=== PATIENT | female | born 1945 | race Caucasian/White ===

== ENCOUNTER 2022-10-14 20:29 | Emergency (ER) | payer MEDICARE, MEDICAID ==
[~2022-10-14] VITALS: Ht 152.4 cm; Wt 68.0 kg
[2022-10-14] MEDS ORDERED: GABA-1181 PO (20:55)
[2022-10-14] MEDS ORDERED: ESCI-8 PO (20:55)
[2022-10-14 21:20] LABS: BASOPHILS % (AUTO) 0.5 % (0.0-2.0); EOSINOPHILS % (AUTO) 0.8 % (1.0-6.0); HEMATOCRIT 38.8 % (36-46); HEMOGLOBIN 13.1 g/dL (12.0-16.0); LYMPHOCYTES # (AUTO) 2.4 K/uL (1.0-4.8); LYMPHOCYTES % (AUTO) 23.2 % (22.0-44.0); MEAN CORPUSCULAR HEMOGLOBIN 29.4 pg (26.0-34.0); MEAN CORPUSCULAR HGB CONC 33.7 G/dL (31.0-37.0); MEAN CORPUSCULAR VOLUME 87 fL (80-100); MONOCYTES # (AUTO) 1.1 K/uL (0.1-1.0); MONOCYTES % (AUTO) 10.3 % (2.0-9.0); NEUTROPHILS # (AUTO) 6.7 K/uL (1.8-7.7); NEUTROPHILS % (AUTO) 65.2 % (40.0-70.0); PLATELET COUNT (AUTO) 313 K/uL (150-450); RED BLOOD CELL COUNT(AUTO) 4.45 MIL/uL (4.00-5.20); RED CELL DISTRIBUTION WIDTH 14.5 % (11.5-14.5)
[2022-10-14 21:32] LABS: CALCIUM, TOTAL 9.8 mg/dL (8.8-10.5); CARBON DIOXIDE 26 mmol/L (22-29); CREATININE 0.81 mg/dL (0.60-1.30); GLOMERULAR FILTR. RATE CALC > 60 mL/min (>60); GLUCOSE,RANDOM 130 mg/dL (70-110); UREA NITROGEN, BLOOD 14 mg/dL (7-18)
[2022-10-14 21:44] LABS: ALANINE AMINOTRANSFERASE 35 U/L (12-78); ALBUMIN 4.1 g/dL (3.4-5.0); ALKALINE PHOSPHATASE 52 U/L (46-116); ANION GAP 11 mmol/L (8-16); ASPARTATE AMINOTRANSFERASE 27 U/L (15-37); BILIRUBIN,TOTAL 0.4 mg/dL (0.1-1.0); CHLORIDE 92 mmol/L (98-107); LIPASE 122 U/L (73-393); POTASSIUM 3.5 mmol/L (3.5-5.1); SODIUM SERUM 129 mmol/L (136-145); TOTAL PROTEIN, SERUM 7.5 g/dL (6.4-8.2)
[2022-10-15 00:20] LABS: APPEARANCE,URINE CLEAR (CLEAR); BILIRUBIN,URINE NEGATIVE (NEGATIVE); GLUCOSE, URINE (UA) NEGATIVE (NEGATIVE); LEUKOCYTE ESTERASE ,URINE MODERATE (NEGATIVE); NITRATE,URINE POSITIVE (NEGATIVE); OCCULT BLOOD,URINE NEGATIVE (NEGATIVE); PH,URINE 6.5 (5.0-8.0); PROTEIN,URINE NEGATIVE (NEGATIVE); SPECIFIC GRAVITIY, URINE 1.009 (1.003-1.030); UROBILINOGEN,URINE <=1.0 mg/dL (<=1.0)
[2022-10-15 00:22] LABS: AMPHET/METH SCREEN,URINE NEGATIVE (NEGATIVE); BARBITURATE SCREEN, URINE NEGATIVE (NEGATIVE); BENZODIAZEPINES SCREEN,URINE NEGATIVE (NEGATIVE); CANNABINOID SCREEN,URINE NEGATIVE (NEGATIVE); COCAINE SCREEN,URINE NEGATIVE (NEGATIVE); METHADONE SCREEN, URINE NEGATIVE (NEGATIVE); OPIATE SCREEN,URINE NEGATIVE (NEGATIVE); PHENCYCLIDINE SCREEN,URINE NEGATIVE (NEGATIVE)
[2022-10-15 00:29] LABS: BACTERIA,URINE Many /HPF (None Seen); RBC,URINE 0-2 /HPF (0-2); SQUAMOUS EPITHELIAL CELL,UR Few /LPF (None Seen)
[2022-10-15 00:39] LABS: COVID AG,FIA SOURCE NASAL SWAB
[2022-10-15] MEDS: LORazepam 1 MG TABLET PO ONE ×2 (01:37→02:45)
[2022-10-15] MEDS ORDERED: CEPHALEXIN MONOHYDRATE 500 MG CAPSULE PO ONE (02:45)
[2022-10-15] MEDS ORDERED: CEPH-558 PO (03:09)
[2022-10-15 03:21] VITALS: BP 154/87
[2022-10-15] MEDS ORDERED: METO25 PO (13:15)
== END 2022-10-15 03:44 | disposition short-term general hospital (02) ==
LOC: EMS 20:29
DX: R45.851 Suicidal ideations (principal); N39.0 Urinary tract infection, site not specified; F32.A Depression, unspecified; Z88.0 Allergy status to penicillin; Z20.822 Contact with and (suspected) exposure to COVID-19
CPT/HCPCS: 99285; 71045; 87426; 80053; 83690; 84484; 85025; 36415; 87086; 87186; 93005; 81001; 76705; 80307 ×2; G0480

== ENCOUNTER 2022-10-15 09:56 | Inpatient (IN) | payer OTHER, MEDICAID ==
[~2022-10-15] VITALS: Ht 154.9 cm; Wt 57.6 kg
[~2022-10-15 09:56] MED LIST: CEPH-558 PO; ESCI-8 PO; ESCI5TAB16 PO; GABA-1181 PO; MAG355OR89 PO; METO100T14 PO
[2022-10-15 10:20] LABS: BASOPHILS % (AUTO) 0.4 % (0.0-2.0); EOSINOPHILS % (AUTO) 0.9 % (1.0-6.0); HEMATOCRIT 38.6 % (36-46); LYMPHOCYTES # (AUTO) 2.1 K/uL (1.0-4.8); LYMPHOCYTES % (AUTO) 25.4 % (22.0-44.0); MEAN CORPUSCULAR HEMOGLOBIN 29.1 pg (26.0-34.0); MEAN CORPUSCULAR HGB CONC 33.5 G/dL (31.0-37.0); MEAN CORPUSCULAR VOLUME 87 fL (80-100); MONOCYTES # (AUTO) 0.9 K/uL (0.1-1.0); NEUTROPHILS # (AUTO) 5.2 K/uL (1.8-7.7); NEUTROPHILS % (AUTO) 62.3 % (40.0-70.0); PLATELET COUNT (AUTO) 322 K/uL (150-450); RED BLOOD CELL COUNT(AUTO) 4.45 MIL/uL (4.00-5.20); RED CELL DISTRIBUTION WIDTH 14.4 % (11.5-14.5)
[2022-10-15 10:31] LABS: ANION GAP 9 mmol/L (8-16); CALCIUM, TOTAL 9.4 mg/dL (8.8-10.5); CARBON DIOXIDE 27 mmol/L (22-29); CHLORIDE 94 mmol/L (98-107); CREATININE 0.73 mg/dL (0.60-1.30); GLOMERULAR FILTR. RATE CALC > 60 mL/min (>60); GLUCOSE,RANDOM 142 mg/dL (70-110); POTASSIUM 3.5 mmol/L (3.5-5.1); SODIUM SERUM 130 mmol/L (136-145); UREA NITROGEN, BLOOD 11 mg/dL (7-18)
[2022-10-15 10:36] LABS: ALANINE AMINOTRANSFERASE 35 U/L (12-78); ALBUMIN 3.8 g/dL (3.4-5.0); ALKALINE PHOSPHATASE 47 U/L (46-116); ASPARTATE AMINOTRANSFERASE 32 U/L (15-37); BILIRUBIN,TOTAL 0.5 mg/dL (0.1-1.0); TOTAL PROTEIN, SERUM 7.5 g/dL (6.4-8.2)
[2022-10-15 12:48] LABS: COVID AG,FIA SOURCE NASAL SWAB
[2022-10-15] MEDS ORDERED: METO25 PO (13:15)
[2022-10-15 15:00] VITALS: BP 147/81
[2022-10-15 15:06] LABS: APPEARANCE,URINE CLEAR (CLEAR); BILIRUBIN,URINE NEGATIVE (NEGATIVE); GLUCOSE, URINE (UA) NEGATIVE (NEGATIVE); LEUKOCYTE ESTERASE ,URINE LARGE (NEGATIVE); NITRATE,URINE NEGATIVE (NEGATIVE); OCCULT BLOOD,URINE NEGATIVE (NEGATIVE); PH,URINE 6.5 (5.0-8.0); PROTEIN,URINE TRACE mg/dL (NEGATIVE); SPECIFIC GRAVITIY, URINE 1.012 (1.003-1.030); UROBILINOGEN,URINE <=1.0 mg/dL (<=1.0)
[2022-10-15 15:19] LABS: BACTERIA,URINE None Seen /HPF (None Seen); RBC,URINE None Seen /HPF (0-2); SQUAMOUS EPITHELIAL CELL,UR Few /LPF (None Seen)
[2022-10-15] MEDS: CEPHALEXIN MONOHYDRATE 500 MG CAPSULE PO SCH (17:11)
[2022-10-15] MEDS: ZOLPIDEM TARTRATE 5 MG TABLET PO PRN (20:51)
[2022-10-15 20:59] VITALS: BP 139/88
[2022-10-16 04:45] VITALS: BP 156/88
[2022-10-16] MEDS: LORazepam 1 MG TABLET PO PRN (04:46)
[2022-10-16 08:15] VITALS: BP 111/91
[2022-10-16] MEDS: CEPHALEXIN MONOHYDRATE 500 MG CAPSULE PO SCH ×4 (08:55→16:54)
[2022-10-16] MEDS: QUEtiapine FUMARATE 100 MG TABLET PO PRN (09:27)
[2022-10-16] MEDS ORDERED: ESCITALOPRAM OXALATE 10 MG TABLET PO SCH (11:15)
[2022-10-16] MEDS ORDERED: PETROLATUM,WHITE 28 GM JELLY TP PRN (11:30)
[2022-10-16] MEDS ORDERED: ALBUTEROL SULFATE HFA 90 MCG/PUFF 8 GM INHALER IH PRN (11:30)
[2022-10-16] MEDS ORDERED: CloNIDine HCL 0.1 MG TABLET PO PRN (11:30)
[2022-10-16] MEDS ORDERED: NICOTINE 14 MG/24 HOUR PATCH TD PRN (11:30)
[2022-10-16] MEDS ORDERED: IBUPROFEN 400 MG TABLET PO PRN (11:30)
[2022-10-16] MEDS ORDERED: DOCUSATE SODIUM 100 MG CAPSULE PO PRN (11:30)
[2022-10-16] MEDS ORDERED: GuaiFENesin/D-METHORPHAN [SUGAR-FREE] 200-20MG/10 ML SYRUP UDCUP PO PRN (11:30)
[2022-10-16] MEDS ORDERED: LOPERAMIDE HCL 2 MG CAPSULE PO PRN (11:30)
[2022-10-16] MEDS ORDERED: ONDANSETRON HCL 4 MG TABLET PO PRN (11:30)
[2022-10-16] MEDS: MAGNESIUM HYDROXIDE SUSPENSION 30 ML UDCUP PO PRN (11:31)
[2022-10-16] MEDS: SERTRALINE HCL 50 MG TABLET PO SCH (11:31)
[2022-10-16 16:00] VITALS: BP 142/85
[2022-10-16] MEDS: MAG HYDROX/AL HYDROX/SIMETH ES 30 ML SUSPENSION UDCUP PO PRN (20:02)
[2022-10-16 20:54] VITALS: BP 137/78
[2022-10-16] MEDS: ZOLPIDEM TARTRATE 5 MG TABLET PO PRN (21:35)
[2022-10-17] MEDS: CEPHALEXIN MONOHYDRATE 500 MG CAPSULE PO SCH ×3 (08:32→16:51)
[2022-10-17] MEDS: SERTRALINE HCL 50 MG TABLET PO SCH (08:33)
[2022-10-17 08:45] VITALS: BP 140/90
[2022-10-17 11:03] LABS: BASOPHILS % (AUTO) 0.6 % (0.0-2.0); EOSINOPHILS % (AUTO) 0.9 % (1.0-6.0); HEMATOCRIT 39.1 % (36-46); HEMOGLOBIN 13.3 g/dL (12.0-16.0); LYMPHOCYTES # (AUTO) 1.9 K/uL (1.0-4.8); LYMPHOCYTES % (AUTO) 21.4 % (22.0-44.0); MEAN CORPUSCULAR HEMOGLOBIN 29.2 pg (26.0-34.0); MEAN CORPUSCULAR VOLUME 86 fL (80-100); MONOCYTES # (AUTO) 0.8 K/uL (0.1-1.0); MONOCYTES % (AUTO) 9.4 % (2.0-9.0); NEUTROPHILS % (AUTO) 67.7 % (40.0-70.0); PLATELET COUNT (AUTO) 335 K/uL (150-450); RED BLOOD CELL COUNT(AUTO) 4.55 MIL/uL (4.00-5.20); RED CELL DISTRIBUTION WIDTH 14.6 % (11.5-14.5)
[2022-10-17] MEDS: ACETAMINOPHEN 325 MG TABLET PO PRN (11:22)
[2022-10-17 11:23] LABS: HEMOGLOBIN A1C 6.3 % (3.8-5.6)
[2022-10-17 11:55] LABS: ALANINE AMINOTRANSFERASE 36 U/L (12-78); ALBUMIN 4.3 g/dL (3.4-5.0); ALKALINE PHOSPHATASE 52 U/L (46-116); ANION GAP 12 mmol/L (8-16); ASPARTATE AMINOTRANSFERASE 25 U/L (15-37); BILIRUBIN,TOTAL 0.6 mg/dL (0.1-1.0); CALCIUM, TOTAL 9.9 mg/dL (8.8-10.5); CARBON DIOXIDE 26 mmol/L (22-29); CHLORIDE 94 mmol/L (98-107); CHOL/HDL RATIO 2.4 (3.9-5.7); CHOLESTEROL 178 mg/dL (131-200); CREATININE 0.83 mg/dL (0.60-1.30); GLOMERULAR FILTR. RATE CALC > 60 mL/min (>60); GLUCOSE,RANDOM 151 mg/dL (70-110); HDL CHOLESTEROL 74 mg/dL (40-60); LDL CHOL (CALC.) 93 mg/dL (0-130); POTASSIUM 3.7 mmol/L (3.5-5.1); SODIUM SERUM 132 mmol/L (136-145); THYROID STIMULATING HORMONE 1.83 uIU/mL (0.36-3.74); TOTAL PROTEIN, SERUM 8.2 g/dL (6.4-8.2); TRIGLYCERIDES 56 mg/dL (15-150); UREA NITROGEN, BLOOD 10 mg/dL (7-18)
[2022-10-17] MEDS: QUEtiapine FUMARATE 100 MG TABLET PO PRN (12:25)
[2022-10-17 16:17] VITALS: BP 150/80
[2022-10-17] MEDS: OMEGA-3/DHA/EPA/FISH OIL 1,000 MG CAPSULE PO SCH (20:26)
[2022-10-17] MEDS: MEMANTINE HCL 10 MG TABLET PO SCH (20:26)
[2022-10-17] MEDS: METOPROLOL SUCCINATE 25 MG ER TABLET PO SCH (20:27)
[2022-10-17] MEDS: ZOLPIDEM TARTRATE 5 MG TABLET PO PRN (20:27)
[2022-10-17 21:19] VITALS: BP 130/85
[2022-10-18] MEDS: MetFORMIN HCL 500 MG TABLET PO SCH ×2 (06:35→17:30)
[2022-10-18] MEDS: OMEGA-3/DHA/EPA/FISH OIL 1,000 MG CAPSULE PO SCH ×2 (08:38→21:00)
[2022-10-18] MEDS: CEPHALEXIN MONOHYDRATE 500 MG CAPSULE PO SCH ×2 (08:38→12:13)
[2022-10-18] MEDS: SERTRALINE HCL 50 MG TABLET PO SCH (08:39)
[2022-10-18] MEDS: METOPROLOL SUCCINATE 25 MG ER TABLET PO SCH ×2 (08:40→21:00)
[2022-10-18] MEDS: CHOLECALCIFEROL (VIT D3) 1,000 UNITS [25 MCG] TABLET PO SCH (08:42)
[2022-10-18] MEDS: LORazepam 1 MG TABLET PO PRN (08:43)
[2022-10-18 09:04] VITALS: BP 160/90
[2022-10-18] MEDS: BusPIRone HCL 5 MG TABLET PO SCH ×3 (12:13→21:00)
[2022-10-18] MEDS: QUEtiapine FUMARATE 100 MG TABLET PO PRN (15:02)
[2022-10-18 16:54] VITALS: BP 150/75
[2022-10-18] MEDS: MEMANTINE HCL 10 MG TABLET PO SCH (21:00)
[2022-10-18 21:25] VITALS: BP 160/71
[2022-10-19] MEDS: MetFORMIN HCL 500 MG TABLET PO SCH ×2 (06:33→18:26)
[2022-10-19 08:15] VITALS: BP 140/84
[2022-10-19] MEDS: OMEGA-3/DHA/EPA/FISH OIL 1,000 MG CAPSULE PO SCH ×2 (08:29→20:45)
[2022-10-19] MEDS: SERTRALINE HCL 50 MG TABLET PO SCH (08:29)
[2022-10-19] MEDS: METOPROLOL SUCCINATE 25 MG ER TABLET PO SCH ×2 (08:30→20:46)
[2022-10-19] MEDS: BusPIRone HCL 5 MG TABLET PO SCH ×3 (08:30→20:45)
[2022-10-19] MEDS: CHOLECALCIFEROL (VIT D3) 1,000 UNITS [25 MCG] TABLET PO SCH (08:31)
[2022-10-19 18:32] VITALS: BP 168/68
[2022-10-19] MEDS: QUEtiapine FUMARATE 100 MG TABLET PO PRN (18:50)
[2022-10-19] MEDS: MEMANTINE HCL 10 MG TABLET PO SCH (20:45)
[2022-10-19 21:31] VITALS: BP 115/59
[2022-10-20] MEDS: MetFORMIN HCL 500 MG TABLET PO SCH ×2 (07:06→16:38)
[2022-10-20] MEDS: METOPROLOL SUCCINATE 25 MG ER TABLET PO SCH ×2 (08:28→20:44)
[2022-10-20] MEDS: CHOLECALCIFEROL (VIT D3) 1,000 UNITS [25 MCG] TABLET PO SCH (08:28)
[2022-10-20] MEDS: SERTRALINE HCL 50 MG TABLET PO SCH (08:28)
[2022-10-20] MEDS: OMEGA-3/DHA/EPA/FISH OIL 1,000 MG CAPSULE PO SCH ×2 (08:29→20:43)
[2022-10-20] MEDS: BusPIRone HCL 5 MG TABLET PO SCH ×3 (08:31→20:44)
[2022-10-20 09:04] VITALS: BP 153/82
[2022-10-20 16:11] VITALS: BP 151/83
[2022-10-20] MEDS: MEMANTINE HCL 10 MG TABLET PO SCH (20:44)
[2022-10-20 21:31] VITALS: BP 160/88
[2022-10-21] VITALS (7 sets, daily range): BP systolic 129–166; BP diastolic 61–89
[2022-10-21] MEDS: MetFORMIN HCL 500 MG TABLET PO SCH ×2 (07:06→18:06)
[2022-10-21] MEDS: SERTRALINE HCL 50 MG TABLET PO SCH (08:34)
[2022-10-21] MEDS: BusPIRone HCL 5 MG TABLET PO SCH ×3 (08:34→20:54)
[2022-10-21] MEDS: CHOLECALCIFEROL (VIT D3) 1,000 UNITS [25 MCG] TABLET PO SCH (08:34)
[2022-10-21] MEDS: METOPROLOL SUCCINATE 25 MG ER TABLET PO SCH ×2 (08:34→20:56)
[2022-10-21] MEDS: OMEGA-3/DHA/EPA/FISH OIL 1,000 MG CAPSULE PO SCH ×2 (08:34→20:53)
[2022-10-21] MEDS ORDERED: DiphenhydrAMINE HCL 25 MG CAPSULE PO ONE (11:30)
[2022-10-21] MEDS ORDERED: LORazepam 2 MG TABLET PO ONE (11:30)
[2022-10-21] MEDS ORDERED: DIAZEPAM 5 MG TABLET PO PRN (12:00)
[2022-10-21] MEDS: MEMANTINE HCL 10 MG TABLET PO SCH (20:54)
[2022-10-21] MEDS: ZOLPIDEM TARTRATE 5 MG TABLET PO PRN (22:15)
[2022-10-22] VITALS (9 sets, daily range): BP systolic 119–155; BP diastolic 58–88
[2022-10-22] MEDS: MetFORMIN HCL 500 MG TABLET PO SCH ×2 (06:36→18:06)
[2022-10-22] MEDS: LEVOTHYROXINE SODIUM 75 MCG TABLET PO SCH (06:36)
[2022-10-22] MEDS ORDERED: DIAZEPAM 5 MG TABLET PO PRN (07:00)
[2022-10-22 08:24] LABS: COVID AG,FIA SOURCE NASAL SWAB
[2022-10-22] MEDS: METOPROLOL SUCCINATE 25 MG ER TABLET PO SCH ×2 (11:04→21:20)
[2022-10-22] MEDS: OMEGA-3/DHA/EPA/FISH OIL 1,000 MG CAPSULE PO SCH ×2 (11:04→21:18)
[2022-10-22] MEDS: SERTRALINE HCL 50 MG TABLET PO SCH (11:05)
[2022-10-22] MEDS: BusPIRone HCL 5 MG TABLET PO SCH ×3 (11:06→21:20)
[2022-10-22] MEDS: CHOLECALCIFEROL (VIT D3) 1,000 UNITS [25 MCG] TABLET PO SCH (11:06)
[2022-10-22] MEDS: DIAZEPAM 5 MG TABLET PO SCH ×4 (11:06→21:19)
[2022-10-22] MEDS: MEMANTINE HCL 10 MG TABLET PO SCH (21:20)
[2022-10-23] MEDS: MAGNESIUM HYDROXIDE SUSPENSION 30 ML UDCUP PO PRN (05:42)
[2022-10-23 05:52] VITALS: BP 144/77
[2022-10-23] MEDS: MetFORMIN HCL 500 MG TABLET PO SCH ×2 (06:36→17:59)
[2022-10-23] MEDS: LEVOTHYROXINE SODIUM 75 MCG TABLET PO SCH (06:37)
[2022-10-23 09:00] VITALS: BP 134/93
[2022-10-23 09:01] VITALS: BP 134/93
[2022-10-23] MEDS: BusPIRone HCL 5 MG TABLET PO SCH ×3 (10:08→21:29)
[2022-10-23] MEDS: SERTRALINE HCL 50 MG TABLET PO SCH (10:08)
[2022-10-23] MEDS: METOPROLOL SUCCINATE 25 MG ER TABLET PO SCH ×2 (10:08→21:29)
[2022-10-23] MEDS: OMEGA-3/DHA/EPA/FISH OIL 1,000 MG CAPSULE PO SCH ×2 (10:08→21:29)
[2022-10-23] MEDS: CHOLECALCIFEROL (VIT D3) 1,000 UNITS [25 MCG] TABLET PO SCH (10:08)
[2022-10-23] MEDS: DIAZEPAM 5 MG TABLET PO SCH ×4 (10:09→21:30)
[2022-10-23 16:29] VITALS: BP 150/74
[2022-10-23 20:29] VITALS: BP 120/78
[2022-10-23 20:30] VITALS: BP 120/78
[2022-10-23] MEDS: MEMANTINE HCL 10 MG TABLET PO SCH (21:29)
[2022-10-23] MEDS: ZOLPIDEM TARTRATE 5 MG TABLET PO PRN (22:00)
[2022-10-24] MEDS: LEVOTHYROXINE SODIUM 75 MCG TABLET PO SCH (06:38)
[2022-10-24] MEDS: MetFORMIN HCL 500 MG TABLET PO SCH ×2 (06:38→16:36)
[2022-10-24] MEDS ORDERED: DIAZEPAM 5 MG TABLET PO PRN (07:00)
[2022-10-24 08:30] VITALS: BP 125/74
[2022-10-24 09:23] VITALS: BP 125/74
[2022-10-24] MEDS: OMEGA-3/DHA/EPA/FISH OIL 1,000 MG CAPSULE PO SCH ×2 (09:23→20:59)
[2022-10-24] MEDS: CHOLECALCIFEROL (VIT D3) 1,000 UNITS [25 MCG] TABLET PO SCH (09:23)
[2022-10-24] MEDS: METOPROLOL SUCCINATE 25 MG ER TABLET PO SCH ×2 (09:23→20:58)
[2022-10-24] MEDS: SERTRALINE HCL 50 MG TABLET PO SCH (09:24)
[2022-10-24] MEDS: DIAZEPAM 5 MG TABLET PO SCH ×4 (09:24→20:59)
[2022-10-24] MEDS: BusPIRone HCL 5 MG TABLET PO SCH ×3 (09:24→21:00)
[2022-10-24 16:44] VITALS: BP 129/87
[2022-10-24] MEDS: MEMANTINE HCL 10 MG TABLET PO SCH (20:58)
[2022-10-24 21:00] VITALS: BP 135/65
[2022-10-25 05:57] LABS: APPEARANCE,URINE CLEAR (CLEAR); BILIRUBIN,URINE NEGATIVE (NEGATIVE); GLUCOSE, URINE (UA) NEGATIVE (NEGATIVE); KETONES,URINE NEGATIVE (NEGATIVE); LEUKOCYTE ESTERASE ,URINE SMALL (NEGATIVE); NITRATE,URINE NEGATIVE (NEGATIVE); OCCULT BLOOD,URINE NEGATIVE (NEGATIVE); PH,URINE 6.5 (5.0-8.0); PROTEIN,URINE NEGATIVE (NEGATIVE); SPECIFIC GRAVITIY, URINE 1.011 (1.003-1.030); UROBILINOGEN,URINE <=1.0 mg/dL (<=1.0)
[2022-10-25 06:04] LABS: BACTERIA,URINE None Seen /HPF (None Seen); RBC,URINE None Seen /HPF (0-2); SQUAMOUS EPITHELIAL CELL,UR Rare /LPF (None Seen)
[2022-10-25] MEDS: LEVOTHYROXINE SODIUM 75 MCG TABLET PO SCH (06:37)
[2022-10-25] MEDS: MetFORMIN HCL 500 MG TABLET PO SCH ×2 (06:37→17:50)
[2022-10-25] MEDS ORDERED: DIAZEPAM 5 MG TABLET PO PRN (07:00)
[2022-10-25 08:00] VITALS: BP 140/73
[2022-10-25 08:41] VITALS: BP 160/100
[2022-10-25] MEDS: SERTRALINE HCL 50 MG TABLET PO SCH (09:00)
[2022-10-25] MEDS: BusPIRone HCL 5 MG TABLET PO SCH ×3 (09:00→21:51)
[2022-10-25] MEDS: OMEGA-3/DHA/EPA/FISH OIL 1,000 MG CAPSULE PO SCH ×2 (09:00→21:51)
[2022-10-25] MEDS: CHOLECALCIFEROL (VIT D3) 1,000 UNITS [25 MCG] TABLET PO SCH (09:00)
[2022-10-25] MEDS: METOPROLOL SUCCINATE 25 MG ER TABLET PO SCH ×2 (09:00→21:51)
[2022-10-25 16:14] VITALS: BP 156/91
[2022-10-25 20:35] VITALS: BP 148/93
[2022-10-25] MEDS: MEMANTINE HCL 10 MG TABLET PO SCH (21:51)
[2022-10-25] MEDS: ZOLPIDEM TARTRATE 5 MG TABLET PO PRN (23:59)
[2022-10-26] MEDS: MetFORMIN HCL 500 MG TABLET PO SCH ×2 (06:53→16:46)
[2022-10-26] MEDS: LEVOTHYROXINE SODIUM 75 MCG TABLET PO SCH (06:53)
[2022-10-26] MEDS: OMEGA-3/DHA/EPA/FISH OIL 1,000 MG CAPSULE PO SCH ×2 (08:33→20:41)
[2022-10-26] MEDS: BusPIRone HCL 5 MG TABLET PO SCH ×3 (08:34→20:41)
[2022-10-26] MEDS: SERTRALINE HCL 50 MG TABLET PO SCH (08:35)
[2022-10-26] MEDS: CHOLECALCIFEROL (VIT D3) 1,000 UNITS [25 MCG] TABLET PO SCH (08:35)
[2022-10-26] MEDS: METOPROLOL SUCCINATE 25 MG ER TABLET PO SCH ×2 (08:35→20:41)
[2022-10-26] MEDS: MAG HYDROX/AL HYDROX/SIMETH ES 30 ML SUSPENSION UDCUP PO PRN (08:37)
[2022-10-26 08:43] VITALS: BP 146/84
[2022-10-26 16:12] VITALS: BP 134/78
[2022-10-26] MEDS: MEMANTINE HCL 10 MG TABLET PO SCH (20:41)
[2022-10-26] MEDS: ZOLPIDEM TARTRATE 5 MG TABLET PO PRN (22:56)
[2022-10-26 23:04] VITALS: BP 139/77
[2022-10-27] MEDS: MetFORMIN HCL 500 MG TABLET PO SCH ×2 (06:39→16:40)
[2022-10-27] MEDS: LEVOTHYROXINE SODIUM 75 MCG TABLET PO SCH (06:39)
[2022-10-27 08:41] VITALS: BP 141/74
[2022-10-27] MEDS: BusPIRone HCL 5 MG TABLET PO SCH ×3 (09:01→21:22)
[2022-10-27] MEDS: METOPROLOL SUCCINATE 25 MG ER TABLET PO SCH ×2 (09:01→21:23)
[2022-10-27] MEDS: CHOLECALCIFEROL (VIT D3) 1,000 UNITS [25 MCG] TABLET PO SCH (09:01)
[2022-10-27] MEDS: SERTRALINE HCL 50 MG TABLET PO SCH (09:01)
[2022-10-27] MEDS: OMEGA-3/DHA/EPA/FISH OIL 1,000 MG CAPSULE PO SCH ×2 (09:01→21:22)
[2022-10-27 16:00] VITALS: BP 156/94
[2022-10-27] MEDS: QUEtiapine FUMARATE 100 MG TABLET PO PRN (19:45)
[2022-10-27 21:02] VITALS: BP 136/84
[2022-10-27] MEDS: MEMANTINE HCL 10 MG TABLET PO SCH (21:22)
[2022-10-27] MEDS: ZOLPIDEM TARTRATE 5 MG TABLET PO PRN (21:23)
[2022-10-28] MEDS: LEVOTHYROXINE SODIUM 75 MCG TABLET PO SCH (06:33)
[2022-10-28] MEDS: MetFORMIN HCL 500 MG TABLET PO SCH ×2 (06:33→16:42)
[2022-10-28] MEDS: BusPIRone HCL 5 MG TABLET PO SCH ×3 (08:51→21:20)
[2022-10-28] MEDS: METOPROLOL SUCCINATE 25 MG ER TABLET PO SCH ×2 (08:51→21:20)
[2022-10-28] MEDS: OMEGA-3/DHA/EPA/FISH OIL 1,000 MG CAPSULE PO SCH ×2 (08:51→21:20)
[2022-10-28] MEDS: CHOLECALCIFEROL (VIT D3) 1,000 UNITS [25 MCG] TABLET PO SCH (08:51)
[2022-10-28] MEDS: SERTRALINE HCL 50 MG TABLET PO SCH (08:51)
[2022-10-28 09:21] VITALS: BP 138/75
[2022-10-28] MEDS: MAG HYDROX/AL HYDROX/SIMETH ES 30 ML SUSPENSION UDCUP PO PRN (09:33)
[2022-10-28 16:20] VITALS: BP 137/80
[2022-10-28 16:21] VITALS: BP 126/88
[2022-10-28 19:04] LABS: APPEARANCE,URINE HAZY (CLEAR); BILIRUBIN,URINE NEGATIVE (NEGATIVE); GLUCOSE, URINE (UA) NEGATIVE (NEGATIVE); KETONES,URINE NEGATIVE (NEGATIVE); LEUKOCYTE ESTERASE ,URINE LARGE (NEGATIVE); OCCULT BLOOD,URINE NEGATIVE (NEGATIVE); PH,URINE 6.5 (5.0-8.0); PROTEIN,URINE NEGATIVE (NEGATIVE); SPECIFIC GRAVITIY, URINE 1.006 (1.003-1.030); UROBILINOGEN,URINE <=1.0 mg/dL (<=1.0)
[2022-10-28 19:38] LABS: NITRATE,URINE POSITIVE (NEGATIVE)
[2022-10-28 20:13] VITALS: BP 154/80
[2022-10-28] MEDS: MEMANTINE HCL 10 MG TABLET PO SCH (21:20)
[2022-10-28] MEDS: ZOLPIDEM TARTRATE 5 MG TABLET PO PRN (21:21)
[2022-10-29] MEDS: LEVOTHYROXINE SODIUM 75 MCG TABLET PO SCH (06:31)
[2022-10-29] MEDS: MetFORMIN HCL 500 MG TABLET PO SCH ×2 (06:31→17:45)
[2022-10-29 07:32] LABS: COVID AG,FIA SOURCE NASAL SWAB
[2022-10-29 09:04] VITALS: BP 143/92
[2022-10-29] MEDS: CHOLECALCIFEROL (VIT D3) 1,000 UNITS [25 MCG] TABLET PO SCH (09:49)
[2022-10-29] MEDS: SERTRALINE HCL 50 MG TABLET PO SCH (09:49)
[2022-10-29] MEDS: METOPROLOL SUCCINATE 25 MG ER TABLET PO SCH ×2 (09:49→20:53)
[2022-10-29] MEDS: BusPIRone HCL 5 MG TABLET PO SCH ×3 (09:50→20:52)
[2022-10-29] MEDS: OMEGA-3/DHA/EPA/FISH OIL 1,000 MG CAPSULE PO SCH ×2 (09:51→20:52)
[2022-10-29] MEDS: QUEtiapine FUMARATE 100 MG TABLET PO PRN (09:52)
[2022-10-29 16:06] VITALS: BP 150/88
[2022-10-29] MEDS: MEMANTINE HCL 10 MG TABLET PO SCH (20:52)
[2022-10-29 21:13] VITALS: BP 131/72
[2022-10-30] MEDS: MetFORMIN HCL 500 MG TABLET PO SCH ×2 (07:05→16:51)
[2022-10-30] MEDS: LEVOTHYROXINE SODIUM 75 MCG TABLET PO SCH (07:06)
[2022-10-30 09:02] VITALS: BP 132/83
[2022-10-30] MEDS: OMEGA-3/DHA/EPA/FISH OIL 1,000 MG CAPSULE PO SCH ×2 (09:24→21:49)
[2022-10-30] MEDS: SERTRALINE HCL 50 MG TABLET PO SCH (09:25)
[2022-10-30] MEDS: BusPIRone HCL 5 MG TABLET PO SCH ×3 (09:25→21:49)
[2022-10-30] MEDS: CHOLECALCIFEROL (VIT D3) 1,000 UNITS [25 MCG] TABLET PO SCH (09:26)
[2022-10-30] MEDS: METOPROLOL SUCCINATE 25 MG ER TABLET PO SCH ×2 (09:26→21:48)
[2022-10-30] MEDS: QUEtiapine FUMARATE 100 MG TABLET PO PRN (13:41)
[2022-10-30 16:18] VITALS: BP 140/88
[2022-10-30] MEDS: MEMANTINE HCL 10 MG TABLET PO SCH (21:49)
[2022-10-31] MEDS: ZOLPIDEM TARTRATE 5 MG TABLET PO PRN (00:15)
[2022-10-31] MEDS: MetFORMIN HCL 500 MG TABLET PO SCH ×2 (06:40→16:57)
[2022-10-31] MEDS: LEVOTHYROXINE SODIUM 75 MCG TABLET PO SCH (06:40)
[2022-10-31] MEDS: SERTRALINE HCL 50 MG TABLET PO SCH (08:35)
[2022-10-31] MEDS: OMEGA-3/DHA/EPA/FISH OIL 1,000 MG CAPSULE PO SCH ×2 (08:35→21:10)
[2022-10-31] MEDS: BusPIRone HCL 5 MG TABLET PO SCH ×3 (08:35→21:08)
[2022-10-31] MEDS: CHOLECALCIFEROL (VIT D3) 1,000 UNITS [25 MCG] TABLET PO SCH (08:35)
[2022-10-31] MEDS: METOPROLOL SUCCINATE 25 MG ER TABLET PO SCH ×2 (08:36→21:06)
[2022-10-31] MEDS: QUEtiapine FUMARATE 100 MG TABLET PO PRN ×2 (08:55→16:57)
[2022-10-31 13:27] VITALS: BP 148/78
[2022-10-31 16:21] VITALS: BP 136/66
[2022-10-31 21:03] VITALS: BP 110/93
[2022-10-31] MEDS: MEMANTINE HCL 10 MG TABLET PO SCH (21:10)
[2022-11-01] MEDS: LEVOTHYROXINE SODIUM 75 MCG TABLET PO SCH (06:12)
[2022-11-01] MEDS: MetFORMIN HCL 500 MG TABLET PO SCH ×3 (06:35→17:25)
[2022-11-01] MEDS: OMEGA-3/DHA/EPA/FISH OIL 1,000 MG CAPSULE PO SCH ×2 (08:46→21:30)
[2022-11-01] MEDS: METOPROLOL SUCCINATE 25 MG ER TABLET PO SCH ×2 (08:47→21:30)
[2022-11-01] MEDS: SERTRALINE HCL 50 MG TABLET PO SCH (08:48)
[2022-11-01] MEDS: BusPIRone HCL 5 MG TABLET PO SCH ×4 (08:48→21:30)
[2022-11-01] MEDS: CHOLECALCIFEROL (VIT D3) 1,000 UNITS [25 MCG] TABLET PO SCH (08:50)
[2022-11-01 09:40] VITALS: BP 166/89
[2022-11-01 16:02] VITALS: BP 164/83
[2022-11-01] MEDS: MEMANTINE HCL 10 MG TABLET PO SCH (21:30)
[2022-11-01 22:48] VITALS: BP 104/70
[2022-11-02] MEDS: LEVOTHYROXINE SODIUM 75 MCG TABLET PO SCH (07:00)
[2022-11-02] MEDS: MetFORMIN HCL 500 MG TABLET PO SCH ×2 (07:16→16:13)
[2022-11-02] MEDS: BusPIRone HCL 5 MG TABLET PO SCH ×3 (08:34→20:59)
[2022-11-02] MEDS: OMEGA-3/DHA/EPA/FISH OIL 1,000 MG CAPSULE PO SCH ×2 (08:34→20:59)
[2022-11-02] MEDS: SERTRALINE HCL 50 MG TABLET PO SCH (08:34)
[2022-11-02] MEDS: CHOLECALCIFEROL (VIT D3) 1,000 UNITS [25 MCG] TABLET PO SCH (08:35)
[2022-11-02] MEDS: METOPROLOL SUCCINATE 25 MG ER TABLET PO SCH ×2 (08:36→20:59)
[2022-11-02] MEDS: QUEtiapine FUMARATE 100 MG TABLET PO PRN (09:14)
[2022-11-02] MEDS: MAGNESIUM HYDROXIDE SUSPENSION 30 ML UDCUP PO PRN (15:12)
[2022-11-02] MEDS: ACETAMINOPHEN 325 MG TABLET PO PRN (16:01)
[2022-11-02 16:37] VITALS: BP 137/77
[2022-11-02 20:12] VITALS: BP 137/77
[2022-11-02] MEDS: MEMANTINE HCL 10 MG TABLET PO SCH (20:59)
[2022-11-02] MEDS: ZOLPIDEM TARTRATE 5 MG TABLET PO PRN (21:23)
[2022-11-02] MEDS: MAG HYDROX/AL HYDROX/SIMETH ES 30 ML SUSPENSION UDCUP PO PRN (23:34)
[2022-11-03 01:15] VITALS: BP 166/75
[2022-11-03] MEDS: QUEtiapine FUMARATE 100 MG TABLET PO PRN ×3 (01:16→16:24)
[2022-11-03] MEDS: LEVOTHYROXINE SODIUM 75 MCG TABLET PO SCH (06:57)
[2022-11-03] MEDS: MetFORMIN HCL 500 MG TABLET PO SCH ×2 (06:58→16:22)
[2022-11-03] MEDS: SERTRALINE HCL 50 MG TABLET PO SCH (08:20)
[2022-11-03] MEDS: METOPROLOL SUCCINATE 25 MG ER TABLET PO SCH ×2 (08:20→20:56)
[2022-11-03] MEDS: CHOLECALCIFEROL (VIT D3) 1,000 UNITS [25 MCG] TABLET PO SCH (08:20)
[2022-11-03] MEDS: BusPIRone HCL 5 MG TABLET PO SCH ×3 (08:20→20:56)
[2022-11-03] MEDS: OMEGA-3/DHA/EPA/FISH OIL 1,000 MG CAPSULE PO SCH ×2 (08:20→20:57)
[2022-11-03 08:58] VITALS: BP 133/87
[2022-11-03 17:41] VITALS: BP 164/87
[2022-11-03] MEDS: MEMANTINE HCL 10 MG TABLET PO SCH (20:56)
[2022-11-04] MEDS: MetFORMIN HCL 500 MG TABLET PO SCH ×2 (07:16→16:38)
[2022-11-04] MEDS: LEVOTHYROXINE SODIUM 75 MCG TABLET PO SCH (07:16)
[2022-11-04] MEDS: CHOLECALCIFEROL (VIT D3) 1,000 UNITS [25 MCG] TABLET PO SCH (08:24)
[2022-11-04] MEDS: METOPROLOL SUCCINATE 25 MG ER TABLET PO SCH ×2 (08:24→20:50)
[2022-11-04] MEDS: SERTRALINE HCL 50 MG TABLET PO SCH (08:24)
[2022-11-04] MEDS: OMEGA-3/DHA/EPA/FISH OIL 1,000 MG CAPSULE PO SCH ×2 (08:24→20:50)
[2022-11-04] MEDS: QUEtiapine FUMARATE 100 MG TABLET PO PRN ×2 (08:26→10:19)
[2022-11-04] MEDS: BusPIRone HCL 5 MG TABLET PO SCH ×3 (08:30→20:50)
[2022-11-04 08:36] VITALS: BP 132/75
[2022-11-04 16:40] VITALS: BP 156/83
[2022-11-04 17:05] LABS: APPEARANCE,URINE CLEAR (CLEAR); BILIRUBIN,URINE NEGATIVE (NEGATIVE); GLUCOSE, URINE (UA) NEGATIVE (NEGATIVE); KETONES,URINE NEGATIVE (NEGATIVE); LEUKOCYTE ESTERASE ,URINE LARGE (NEGATIVE); NITRATE,URINE NEGATIVE (NEGATIVE); OCCULT BLOOD,URINE NEGATIVE (NEGATIVE); PH,URINE 6.5 (5.0-8.0); PROTEIN,URINE NEGATIVE (NEGATIVE); SPECIFIC GRAVITIY, URINE 1.004 (1.003-1.030); UROBILINOGEN,URINE <=1.0 mg/dL (<=1.0)
[2022-11-04 17:24] LABS: RBC,URINE None Seen /HPF (0-2)
[2022-11-04 17:26] LABS: BACTERIA,URINE Many /HPF (None Seen)
[2022-11-04] MEDS: CIPROFLOXACIN HCL 500 MG TABLET PO SCH (18:29)
[2022-11-04 20:29] VITALS: BP 155/96
[2022-11-04] MEDS: MEMANTINE HCL 10 MG TABLET PO SCH (20:50)
[2022-11-04] MEDS: ZOLPIDEM TARTRATE 5 MG TABLET PO PRN (21:57)
[2022-11-05 04:42] VITALS: BP 148/80
[2022-11-05] MEDS: ACETAMINOPHEN 325 MG TABLET PO PRN (04:46)
[2022-11-05] MEDS: LEVOTHYROXINE SODIUM 75 MCG TABLET PO SCH (06:37)
[2022-11-05] MEDS: MetFORMIN HCL 500 MG TABLET PO SCH (06:47)
[2022-11-05 07:30] LABS: COVID AG,FIA SOURCE NASAL SWAB
[2022-11-05] MEDS: SERTRALINE HCL 50 MG TABLET PO SCH (07:51)
[2022-11-05] MEDS: BusPIRone HCL 5 MG TABLET PO SCH ×2 (07:51→16:15)
[2022-11-05] MEDS: CHOLECALCIFEROL (VIT D3) 1,000 UNITS [25 MCG] TABLET PO SCH (07:51)
[2022-11-05] MEDS: METOPROLOL SUCCINATE 25 MG ER TABLET PO SCH (07:51)
[2022-11-05] MEDS: CIPROFLOXACIN HCL 500 MG TABLET PO SCH ×2 (07:51→16:15)
[2022-11-05] MEDS: OMEGA-3/DHA/EPA/FISH OIL 1,000 MG CAPSULE PO SCH (07:52)
[2022-11-05 08:40] VITALS: BP 155/93
[2022-11-05] MEDS: QUEtiapine FUMARATE 100 MG TABLET PO PRN (09:18)
[2022-11-05] MEDS ORDERED: BUSP5TAB20 PO (12:01)
[2022-11-05] MEDS ORDERED: METO25XL PO (12:01)
[2022-11-05] MEDS ORDERED: MEMA10TA11 PO (12:01)
[2022-11-05] MEDS ORDERED: CIPR500T10 PO (12:01)
[2022-11-05] MEDS ORDERED: OMEG-135 PO (12:01)
[2022-11-05] MEDS ORDERED: SERT-439 PO (12:01)
[2022-11-05] MEDS ORDERED: METF-1211 PO (12:01)
[2022-11-05] MEDS ORDERED: LEVO75 PO (12:01)
[2022-11-05 16:09] VITALS: BP 113/72
== END 2022-11-05 17:43 | disposition home or self-care (01) | DRG 885 ==
LOC: EMS 09:59 → 3EI 14:55
PROVIDERS: ADMIT Psychiatry & Neurology Psychiatry; ATTEND Psychiatry & Neurology Psychiatry
DX: F33.2 Major depressive disorder, recurrent severe without psychotic features (principal); F13.239 Sedative, hypnotic or anxiolytic dependence with withdrawal, unspecified; N39.0 Urinary tract infection, site not specified; R45.851 Suicidal ideations; E87.1 Hypo-osmolality and hyponatremia; F20.9 Schizophrenia, unspecified; F41.0 Panic disorder [episodic paroxysmal anxiety]; G47.00 Insomnia, unspecified; R73.9 Hyperglycemia, unspecified; I10 Essential (primary) hypertension; Z59.00 Homelessness unspecified; Z87.442 Personal history of urinary calculi; Z79.899 Other long term (current) drug therapy; Z88.0 Allergy status to penicillin; Z91.51 Personal history of suicidal behavior; Z91.81 History of falling
CPT/HCPCS: 80053; 80061; 81001; 83036; 83690; 84443; 85025; 87086; 87186; 92610; 99285

== ENCOUNTER 2022-11-30 05:49 | Inpatient (IN) | payer OTHER, MEDICAID ==
[~2022-11-30] VITALS: Ht 154.9 cm; Wt 55.9 kg
[~2022-11-30 05:49] MED LIST changes: +BUSP5TAB20 PO; -CEPH-558 PO; +CIPR500T10 PO; -ESCI-8 PO; -GABA-1181 PO; +LEVO75 PO; +MEMA10TA11 PO; +METF-1211 PO; +METO25XL PO; +OMEG-135 PO; +SERT-439 PO
[2022-11-30] MEDS ORDERED: SODIUM CHLORIDE 0.9% 1,000 ML IV ONE (06:30)
[2022-11-30] MEDS ORDERED: LORazepam 2 MG/ML VIAL IVP ONE (06:30)
[2022-11-30] MEDS ORDERED: ONDANSETRON HCL 4 MG/2 ML VIAL IVP ONE (06:30)
[2022-11-30 07:00] LABS: BASOPHILS % (AUTO) 0.7 % (0.0-2.0); EOSINOPHILS % (AUTO) 3.1 % (1.0-6.0); HEMATOCRIT 38.1 % (36-46); HEMOGLOBIN 12.8 g/dL (12.0-16.0); LYMPHOCYTES # (AUTO) 2.6 K/uL (1.0-4.8); LYMPHOCYTES % (AUTO) 25.3 % (22.0-44.0); MEAN CORPUSCULAR HEMOGLOBIN 29.9 pg (26.0-34.0); MEAN CORPUSCULAR HGB CONC 33.7 G/dL (31.0-37.0); MEAN CORPUSCULAR VOLUME 89 fL (80-100); MONOCYTES # (AUTO) 0.9 K/uL (0.1-1.0); MONOCYTES % (AUTO) 8.6 % (2.0-9.0); NEUTROPHILS # (AUTO) 6.4 K/uL (1.8-7.7); NEUTROPHILS % (AUTO) 62.3 % (40.0-70.0); PLATELET COUNT (AUTO) 344 K/uL (150-450); RED CELL DISTRIBUTION WIDTH 14.1 % (11.5-14.5)
[2022-11-30 07:04] LABS: ANION GAP 9 mmol/L (8-16); CALCIUM, TOTAL 9.3 mg/dL (8.8-10.5); CARBON DIOXIDE 27 mmol/L (22-29); CHLORIDE 97 mmol/L (98-107); CREATININE 0.86 mg/dL (0.60-1.30); GLOMERULAR FILTR. RATE CALC > 60 mL/min (>60); GLUCOSE,RANDOM 188 mg/dL (70-110); POTASSIUM 3.6 mmol/L (3.5-5.1); SODIUM SERUM 133 mmol/L (136-145); UREA NITROGEN, BLOOD 15 mg/dL (7-18)
[2022-11-30 07:11] LABS: ALANINE AMINOTRANSFERASE 37 U/L (12-78); ALBUMIN 3.4 g/dL (3.4-5.0); ALKALINE PHOSPHATASE 53 U/L (46-116); ASPARTATE AMINOTRANSFERASE 23 U/L (15-37); BILIRUBIN,TOTAL 0.5 mg/dL (0.1-1.0); TOTAL PROTEIN, SERUM 7.5 g/dL (6.4-8.2)
[2022-11-30] MEDS ORDERED: RAME8TAB8 PO (09:53)
[2022-11-30] MEDS ORDERED: TRAZ-252 PO (09:53)
[2022-11-30] MEDS ORDERED: LORazepam 2 MG TABLET PO PRN (10:00)
[2022-11-30] MEDS ORDERED: HALOPERIDOL 5 MG TABLET PO PRN (10:00)
[2022-11-30 10:09] LABS: COVID AG,FIA SOURCE NASOPHARYNGEAL
[2022-11-30] MEDS ORDERED: ESCI20TA37 PO (11:10)
[2022-11-30] MEDS ORDERED: METO25 PO (11:10)
[2022-11-30] MEDS ORDERED: MULT1TAB67 PO (11:10)
[2022-11-30] MEDS ORDERED: AZEL137S8 NASAL (11:10)
[2022-11-30] MEDS ORDERED: CHOL200059 PO (11:10)
[2022-11-30] MEDS ORDERED: NITR100C9 PO (11:10)
[2022-11-30] MEDS ORDERED: CRAN500C5 PO (11:10)
[2022-11-30] MEDS ORDERED: OMEG100015 PO (11:10)
[2022-11-30] MEDS ORDERED: CETI10TA58 PO (11:10)
[2022-11-30] MEDS ORDERED: ESTR42.510 VG (11:10)
[2022-11-30 12:41] VITALS: BP 136/72
[2022-11-30] MEDS: OMEGA-3/DHA/EPA/FISH OIL 1,000 MG CAPSULE PO SCH (17:29)
[2022-11-30] MEDS: MetFORMIN HCL 500 MG TABLET PO SCH (17:32)
[2022-11-30 21:14] VITALS: BP 133/83
[2022-11-30] MEDS: MEMANTINE HCL 10 MG TABLET PO SCH (21:45)
[2022-11-30] MEDS: METOPROLOL TARTRATE 25 MG TABLET PO SCH (21:46)
[2022-12-01] VITALS (8 sets, daily range): BP systolic 129–160; BP diastolic 68–84
[2022-12-01] MEDS: ZOLPIDEM TARTRATE 10 MG TABLET PO PRN ×2 (01:29→21:41)
[2022-12-01] MEDS ORDERED: PETROLATUM,WHITE 28 GM JELLY TP PRN (06:45)
[2022-12-01] MEDS ORDERED: ONDANSETRON HCL 4 MG TABLET PO PRN (06:45)
[2022-12-01] MEDS ORDERED: MAGNESIUM HYDROXIDE SUSPENSION 30 ML UDCUP PO PRN (06:45)
[2022-12-01] MEDS ORDERED: LOPERAMIDE HCL 2 MG CAPSULE PO PRN (06:45)
[2022-12-01] MEDS ORDERED: DOCUSATE SODIUM 100 MG CAPSULE PO PRN (06:45)
[2022-12-01] MEDS ORDERED: NICOTINE 14 MG/24 HOUR PATCH TD PRN (06:45)
[2022-12-01] MEDS ORDERED: ACETAMINOPHEN 325 MG TABLET PO PRN (06:45)
[2022-12-01] MEDS: MetFORMIN HCL 500 MG TABLET PO SCH ×2 (06:54→16:36)
[2022-12-01] MEDS: LEVOTHYROXINE SODIUM 75 MCG TABLET PO SCH (06:54)
[2022-12-01] MEDS: CHOLECALCIFEROL (VIT D3) 2,000 UNITS [50 MCG] TABLET PO SCH (09:04)
[2022-12-01] MEDS: OMEGA-3/DHA/EPA/FISH OIL 1,000 MG CAPSULE PO SCH ×2 (09:05→16:32)
[2022-12-01] MEDS: METOPROLOL TARTRATE 25 MG TABLET PO SCH ×2 (09:05→21:24)
[2022-12-01] MEDS: SERTRALINE HCL 100 MG TABLET PO SCH (11:45)
[2022-12-01] MEDS: BusPIRone HCL 5 MG TABLET PO SCH ×3 (11:46→21:24)
[2022-12-01] MEDS ORDERED: DIAZEPAM 5 MG TABLET PO PRN (14:35)
[2022-12-01] MEDS: DIAZEPAM 5 MG TABLET PO SCH ×2 (16:34→21:24)
[2022-12-01] MEDS: MEMANTINE HCL 10 MG TABLET PO SCH (21:24)
[2022-12-02] MEDS: MetFORMIN HCL 500 MG TABLET PO SCH ×2 (06:38→16:42)
[2022-12-02] MEDS: LEVOTHYROXINE SODIUM 75 MCG TABLET PO SCH (06:38)
[2022-12-02] MEDS ORDERED: DIAZEPAM 5 MG TABLET PO PRN ×2 (07:00→09:00)
[2022-12-02] MEDS ORDERED: DIAZEPAM 10 MG TABLET PO PRN (07:00)
[2022-12-02] MEDS: MAG HYDROX/AL HYDROX/SIMETH ES 30 ML SUSPENSION UDCUP PO PRN (07:09)
[2022-12-02 08:25] VITALS: BP 150/72
[2022-12-02 08:30] VITALS: BP 150/72
[2022-12-02] MEDS: DIAZEPAM 10 MG TABLET PO SCH ×4 (09:00→21:25)
[2022-12-02] MEDS: CHOLECALCIFEROL (VIT D3) 2,000 UNITS [50 MCG] TABLET PO SCH (09:00)
[2022-12-02] MEDS ORDERED: DIAZEPAM 5 MG TABLET PO SCH (09:00)
[2022-12-02] MEDS: OMEGA-3/DHA/EPA/FISH OIL 1,000 MG CAPSULE PO SCH ×2 (09:01→16:42)
[2022-12-02] MEDS: BusPIRone HCL 5 MG TABLET PO SCH ×3 (09:02→21:25)
[2022-12-02] MEDS: METOPROLOL TARTRATE 25 MG TABLET PO SCH ×2 (09:03→21:25)
[2022-12-02] MEDS: SERTRALINE HCL 100 MG TABLET PO SCH (09:04)
[2022-12-02 14:30] VITALS: BP 136/73
[2022-12-02 16:10] VITALS: BP 132/76
[2022-12-02 18:56] LABS: APPEARANCE,URINE HAZY (CLEAR); BILIRUBIN,URINE NEGATIVE (NEGATIVE); GLUCOSE, URINE (UA) NEGATIVE (NEGATIVE); KETONES,URINE NEGATIVE (NEGATIVE); LEUKOCYTE ESTERASE ,URINE LARGE (NEGATIVE); NITRATE,URINE POSITIVE (NEGATIVE); OCCULT BLOOD,URINE NEGATIVE (NEGATIVE); PROTEIN,URINE NEGATIVE (NEGATIVE); SPECIFIC GRAVITIY, URINE 1.006 (1.003-1.030); UROBILINOGEN,URINE <=1.0 mg/dL (<=1.0)
[2022-12-02 19:02] LABS: AMPHET/METH SCREEN,URINE NEGATIVE (NEGATIVE); BARBITURATE SCREEN, URINE NEGATIVE (NEGATIVE); BENZODIAZEPINES SCREEN,URINE POSITIVE (NEGATIVE); CANNABINOID SCREEN,URINE NEGATIVE (NEGATIVE); COCAINE SCREEN,URINE NEGATIVE (NEGATIVE); METHADONE SCREEN, URINE NEGATIVE (NEGATIVE); OPIATE SCREEN,URINE NEGATIVE (NEGATIVE); PHENCYCLIDINE SCREEN,URINE NEGATIVE (NEGATIVE)
[2022-12-02 19:26] LABS: BACTERIA,URINE Moderate /HPF (None Seen); RBC,URINE None Seen /HPF (0-2); SQUAMOUS EPITHELIAL CELL,UR None Seen /LPF (None Seen)
[2022-12-02 20:30] VITALS: BP 135/74
[2022-12-02 21:21] VITALS: BP 135/74
[2022-12-02] MEDS: MEMANTINE HCL 10 MG TABLET PO SCH (21:25)
[2022-12-02] MEDS: ZOLPIDEM TARTRATE 10 MG TABLET PO PRN (22:27)
[2022-12-03] MEDS: MetFORMIN HCL 500 MG TABLET PO SCH ×2 (06:46→17:30)
[2022-12-03] MEDS: LEVOTHYROXINE SODIUM 75 MCG TABLET PO SCH (06:46)
[2022-12-03 08:42] VITALS: BP 129/76
[2022-12-03] MEDS ORDERED: DIAZEPAM 5 MG TABLET PO PRN (09:00)
[2022-12-03] MEDS: OMEGA-3/DHA/EPA/FISH OIL 1,000 MG CAPSULE PO SCH ×2 (10:15→16:54)
[2022-12-03] MEDS: SERTRALINE HCL 100 MG TABLET PO SCH (10:15)
[2022-12-03] MEDS: BusPIRone HCL 5 MG TABLET PO SCH ×3 (10:15→20:08)
[2022-12-03] MEDS: METOPROLOL TARTRATE 25 MG TABLET PO SCH ×2 (10:15→20:09)
[2022-12-03] MEDS: DIAZEPAM 10 MG TABLET PO SCH ×4 (10:15→20:08)
[2022-12-03] MEDS: CHOLECALCIFEROL (VIT D3) 2,000 UNITS [50 MCG] TABLET PO SCH (10:15)
[2022-12-03] MEDS: MAG HYDROX/AL HYDROX/SIMETH ES 30 ML SUSPENSION UDCUP PO PRN (12:52)
[2022-12-03 16:45] VITALS: BP 157/96
[2022-12-03] MEDS: MEMANTINE HCL 10 MG TABLET PO SCH (20:08)
[2022-12-03] MEDS: ZOLPIDEM TARTRATE 10 MG TABLET PO PRN (21:14)
[2022-12-03 21:15] VITALS: BP 112/60
[2022-12-03 22:03] VITALS: BP 112/60
[2022-12-04] MEDS: GuaiFENesin/D-METHORPHAN [SUGAR-FREE] 200-20MG/10 ML SYRUP UDCUP PO PRN (06:10)
[2022-12-04] MEDS: LEVOTHYROXINE SODIUM 75 MCG TABLET PO SCH (06:35)
[2022-12-04] MEDS: MetFORMIN HCL 500 MG TABLET PO SCH ×2 (06:35→17:24)
[2022-12-04] MEDS ORDERED: DIAZEPAM 5 MG TABLET PO PRN (07:00)
[2022-12-04 08:00] VITALS: BP 141/62
[2022-12-04] MEDS: SERTRALINE HCL 100 MG TABLET PO SCH (09:32)
[2022-12-04] MEDS: METOPROLOL TARTRATE 25 MG TABLET PO SCH ×2 (09:32→20:05)
[2022-12-04] MEDS: OMEGA-3/DHA/EPA/FISH OIL 1,000 MG CAPSULE PO SCH ×2 (09:32→17:26)
[2022-12-04] MEDS: BusPIRone HCL 5 MG TABLET PO SCH ×3 (09:32→20:05)
[2022-12-04] MEDS: CHOLECALCIFEROL (VIT D3) 2,000 UNITS [50 MCG] TABLET PO SCH (09:33)
[2022-12-04] MEDS: DIAZEPAM 5 MG TABLET PO SCH ×4 (09:34→20:05)
[2022-12-04 09:35] VITALS: BP 134/68
[2022-12-04] MEDS: IBUPROFEN 400 MG TABLET PO PRN (09:35)
[2022-12-04 16:12] VITALS: BP 124/72
[2022-12-04] MEDS: CIPROFLOXACIN HCL 500 MG TABLET PO SCH (17:25)
[2022-12-04] MEDS: MEMANTINE HCL 10 MG TABLET PO SCH (20:05)
[2022-12-04 20:51] VITALS: BP 138/81
[2022-12-04 21:03] VITALS: BP 138/81
[2022-12-04] MEDS: ZOLPIDEM TARTRATE 10 MG TABLET PO PRN (21:42)
[2022-12-05] MEDS: GuaiFENesin/D-METHORPHAN [SUGAR-FREE] 200-20MG/10 ML SYRUP UDCUP PO PRN (06:30)
[2022-12-05] MEDS: LEVOTHYROXINE SODIUM 75 MCG TABLET PO SCH (06:50)
[2022-12-05] MEDS: MetFORMIN HCL 500 MG TABLET PO SCH ×2 (06:50→17:19)
[2022-12-05] MEDS ORDERED: DIAZEPAM 5 MG TABLET PO PRN (07:00)
[2022-12-05 08:30] VITALS: BP 100/60
[2022-12-05 08:46] VITALS: BP 100/54
[2022-12-05] MEDS: SERTRALINE HCL 100 MG TABLET PO SCH (09:00)
[2022-12-05] MEDS: CHOLECALCIFEROL (VIT D3) 2,000 UNITS [50 MCG] TABLET PO SCH (09:00)
[2022-12-05] MEDS: OMEGA-3/DHA/EPA/FISH OIL 1,000 MG CAPSULE PO SCH ×2 (09:00→16:04)
[2022-12-05] MEDS: BusPIRone HCL 5 MG TABLET PO SCH ×3 (09:00→21:12)
[2022-12-05] MEDS: CIPROFLOXACIN HCL 500 MG TABLET PO SCH ×2 (09:00→16:04)
[2022-12-05] MEDS: METOPROLOL TARTRATE 25 MG TABLET PO SCH ×2 (09:00→21:11)
[2022-12-05 16:25] VITALS: BP 130/75
[2022-12-05 20:00] VITALS: BP 124/72
[2022-12-05] MEDS: MEMANTINE HCL 10 MG TABLET PO SCH (21:10)
[2022-12-06] MEDS: MAG HYDROX/AL HYDROX/SIMETH ES 30 ML SUSPENSION UDCUP PO PRN (05:09)
[2022-12-06] MEDS: GuaiFENesin/D-METHORPHAN [SUGAR-FREE] 200-20MG/10 ML SYRUP UDCUP PO PRN (06:19)
[2022-12-06] MEDS: ALBUTEROL SULFATE HFA 90 MCG/PUFF 8 GM INHALER IH PRN (06:22)
[2022-12-06] MEDS: MetFORMIN HCL 500 MG TABLET PO SCH ×2 (06:23→17:28)
[2022-12-06] MEDS: LEVOTHYROXINE SODIUM 75 MCG TABLET PO SCH (06:23)
[2022-12-06 07:56] LABS: COVID AG,FIA SOURCE NASAL SWAB
[2022-12-06 08:44] VITALS: BP 150/78
[2022-12-06] MEDS: BusPIRone HCL 5 MG TABLET PO SCH ×3 (09:08→20:34)
[2022-12-06] MEDS: CHOLECALCIFEROL (VIT D3) 2,000 UNITS [50 MCG] TABLET PO SCH (09:08)
[2022-12-06] MEDS: SERTRALINE HCL 100 MG TABLET PO SCH (09:08)
[2022-12-06] MEDS: CIPROFLOXACIN HCL 500 MG TABLET PO SCH ×2 (09:09→17:28)
[2022-12-06] MEDS: METOPROLOL TARTRATE 25 MG TABLET PO SCH ×2 (09:10→20:34)
[2022-12-06] MEDS: OMEGA-3/DHA/EPA/FISH OIL 1,000 MG CAPSULE PO SCH ×2 (09:11→17:29)
[2022-12-06 09:20] VITALS: BP 150/78
[2022-12-06] MEDS: IBUPROFEN 400 MG TABLET PO PRN (09:22)
[2022-12-06 16:03] VITALS: BP 145/77
[2022-12-06 20:21] VITALS: BP 140/80
[2022-12-06] MEDS: MEMANTINE HCL 10 MG TABLET PO SCH (20:34)
[2022-12-06] MEDS: ZOLPIDEM TARTRATE 10 MG TABLET PO PRN (21:49)
[2022-12-07] MEDS: LEVOTHYROXINE SODIUM 75 MCG TABLET PO SCH (06:15)
[2022-12-07] MEDS: MetFORMIN HCL 500 MG TABLET PO SCH ×2 (06:38→17:08)
[2022-12-07] MEDS: BusPIRone HCL 5 MG TABLET PO SCH ×3 (09:01→20:34)
[2022-12-07] MEDS: SERTRALINE HCL 100 MG TABLET PO SCH (09:01)
[2022-12-07] MEDS: OMEGA-3/DHA/EPA/FISH OIL 1,000 MG CAPSULE PO SCH ×2 (09:02→17:08)
[2022-12-07] MEDS: METOPROLOL TARTRATE 25 MG TABLET PO SCH ×2 (09:02→20:34)
[2022-12-07] MEDS: CHOLECALCIFEROL (VIT D3) 2,000 UNITS [50 MCG] TABLET PO SCH (09:03)
[2022-12-07] MEDS: CIPROFLOXACIN HCL 500 MG TABLET PO SCH (09:03)
[2022-12-07 09:25] VITALS: BP 131/64
[2022-12-07 16:27] VITALS: BP 133/77
[2022-12-07] MEDS: ALBUTEROL SULFATE HFA 90 MCG/PUFF 8 GM INHALER IH PRN (17:01)
[2022-12-07] MEDS: NITROFURANTOIN MONOHYD/M-CRYST 100 MG CAPSULE [MACROBID] PO SCH (17:08)
[2022-12-07] MEDS: MEMANTINE HCL 10 MG TABLET PO SCH (20:34)
[2022-12-07] MEDS: ZOLPIDEM TARTRATE 10 MG TABLET PO PRN (21:28)
[2022-12-07 23:04] VITALS: BP 155/74
[2022-12-08] MEDS: GuaiFENesin/D-METHORPHAN [SUGAR-FREE] 200-20MG/10 ML SYRUP UDCUP PO PRN (04:21)
[2022-12-08] MEDS: LEVOTHYROXINE SODIUM 75 MCG TABLET PO SCH (06:05)
[2022-12-08] MEDS: MetFORMIN HCL 500 MG TABLET PO SCH ×2 (06:44→17:49)
[2022-12-08 08:00] VITALS: BP 134/75
[2022-12-08] MEDS: NITROFURANTOIN MONOHYD/M-CRYST 100 MG CAPSULE [MACROBID] PO SCH ×2 (08:33→16:15)
[2022-12-08] MEDS: OMEGA-3/DHA/EPA/FISH OIL 1,000 MG CAPSULE PO SCH ×2 (08:33→16:15)
[2022-12-08] MEDS: SERTRALINE HCL 100 MG TABLET PO SCH (08:33)
[2022-12-08] MEDS: METOPROLOL TARTRATE 25 MG TABLET PO SCH ×2 (08:33→20:51)
[2022-12-08] MEDS: BusPIRone HCL 5 MG TABLET PO SCH ×3 (08:33→20:51)
[2022-12-08] MEDS: CHOLECALCIFEROL (VIT D3) 2,000 UNITS [50 MCG] TABLET PO SCH (08:33)
[2022-12-08] MEDS: ALBUTEROL SULFATE HFA 90 MCG/PUFF 8 GM INHALER IH PRN (15:32)
[2022-12-08 17:09] VITALS: BP 131/73
[2022-12-08 20:47] VITALS: BP 129/77
[2022-12-08] MEDS: MEMANTINE HCL 10 MG TABLET PO SCH (20:51)
[2022-12-09] MEDS: LEVOTHYROXINE SODIUM 75 MCG TABLET PO SCH (06:59)
[2022-12-09] MEDS: MetFORMIN HCL 500 MG TABLET PO SCH ×2 (06:59→16:53)
[2022-12-09 09:27] VITALS: BP 121/60
[2022-12-09] MEDS: OMEGA-3/DHA/EPA/FISH OIL 1,000 MG CAPSULE PO SCH ×2 (10:21→16:52)
[2022-12-09] MEDS: METOPROLOL TARTRATE 25 MG TABLET PO SCH ×2 (10:22→20:57)
[2022-12-09] MEDS: SERTRALINE HCL 100 MG TABLET PO SCH (10:22)
[2022-12-09] MEDS: BusPIRone HCL 5 MG TABLET PO SCH ×3 (10:23→20:57)
[2022-12-09] MEDS: CHOLECALCIFEROL (VIT D3) 2,000 UNITS [50 MCG] TABLET PO SCH (10:25)
[2022-12-09] MEDS: NITROFURANTOIN MONOHYD/M-CRYST 100 MG CAPSULE [MACROBID] PO SCH ×2 (10:25→16:53)
[2022-12-09] MEDS: ALBUTEROL SULFATE HFA 90 MCG/PUFF 8 GM INHALER IH PRN ×2 (12:41→20:59)
[2022-12-09 20:09] VITALS: BP 140/82
[2022-12-09] MEDS: MEMANTINE HCL 10 MG TABLET PO SCH (20:58)
[2022-12-09] MEDS: ZOLPIDEM TARTRATE 10 MG TABLET PO PRN (20:58)
[2022-12-10] MEDS: LEVOTHYROXINE SODIUM 75 MCG TABLET PO SCH (06:41)
[2022-12-10] MEDS: MetFORMIN HCL 500 MG TABLET PO SCH ×2 (06:42→16:55)
[2022-12-10 08:47] VITALS: BP 130/61
[2022-12-10] MEDS: NITROFURANTOIN MONOHYD/M-CRYST 100 MG CAPSULE [MACROBID] PO SCH ×2 (10:06→16:54)
[2022-12-10] MEDS: ALBUTEROL SULFATE HFA 90 MCG/PUFF 8 GM INHALER IH PRN (10:06)
[2022-12-10] MEDS: CHOLECALCIFEROL (VIT D3) 2,000 UNITS [50 MCG] TABLET PO SCH (10:06)
[2022-12-10] MEDS: OMEGA-3/DHA/EPA/FISH OIL 1,000 MG CAPSULE PO SCH ×2 (10:07→16:55)
[2022-12-10] MEDS: BusPIRone HCL 5 MG TABLET PO SCH ×3 (10:07→20:57)
[2022-12-10] MEDS: METOPROLOL TARTRATE 25 MG TABLET PO SCH ×2 (10:10→20:57)
[2022-12-10] MEDS: SERTRALINE HCL 100 MG TABLET PO SCH (10:10)
[2022-12-10 10:12] VITALS: BP 130/61
[2022-12-10] MEDS: IBUPROFEN 400 MG TABLET PO PRN (10:12)
[2022-12-10 11:12] VITALS: BP 131/68
[2022-12-10] MEDS: MULTIVITAMINS WITH MINERALS, THERAPEUTIC TABLET PO SCH (15:48)
[2022-12-10 16:08] VITALS: BP 149/51
[2022-12-10 20:34] VITALS: BP 137/73
[2022-12-10] MEDS: ZOLPIDEM TARTRATE 10 MG TABLET PO PRN (20:57)
[2022-12-10] MEDS: MEMANTINE HCL 10 MG TABLET PO SCH (21:38)
[2022-12-11] MEDS: LEVOTHYROXINE SODIUM 75 MCG TABLET PO SCH (06:11)
[2022-12-11] MEDS: MetFORMIN HCL 500 MG TABLET PO SCH ×2 (06:37→16:34)
[2022-12-11] MEDS: METOPROLOL TARTRATE 25 MG TABLET PO SCH ×2 (08:44→21:33)
[2022-12-11] MEDS: OMEGA-3/DHA/EPA/FISH OIL 1,000 MG CAPSULE PO SCH ×2 (08:44→16:34)
[2022-12-11] MEDS: CHOLECALCIFEROL (VIT D3) 2,000 UNITS [50 MCG] TABLET PO SCH (08:44)
[2022-12-11] MEDS: BusPIRone HCL 5 MG TABLET PO SCH ×3 (08:44→21:32)
[2022-12-11] MEDS: SERTRALINE HCL 100 MG TABLET PO SCH (08:44)
[2022-12-11] MEDS: NITROFURANTOIN MONOHYD/M-CRYST 100 MG CAPSULE [MACROBID] PO SCH ×2 (08:44→16:34)
[2022-12-11] MEDS: MULTIVITAMINS WITH MINERALS, THERAPEUTIC TABLET PO SCH (08:44)
[2022-12-11 08:45] VITALS: BP 143/63
[2022-12-11] MEDS: ALBUTEROL SULFATE HFA 90 MCG/PUFF 8 GM INHALER IH PRN (14:25)
[2022-12-11 16:00] VITALS: BP 145/69
[2022-12-11 20:43] VITALS: BP 133/78
[2022-12-11] MEDS: MEMANTINE HCL 10 MG TABLET PO SCH (21:32)
[2022-12-12] MEDS: LEVOTHYROXINE SODIUM 75 MCG TABLET PO SCH (06:40)
[2022-12-12] MEDS: MetFORMIN HCL 500 MG TABLET PO SCH ×2 (06:40→16:42)
[2022-12-12 08:37] VITALS: BP 130/70
[2022-12-12] MEDS: NITROFURANTOIN MONOHYD/M-CRYST 100 MG CAPSULE [MACROBID] PO SCH ×2 (09:12→16:40)
[2022-12-12] MEDS: CHOLECALCIFEROL (VIT D3) 2,000 UNITS [50 MCG] TABLET PO SCH (09:13)
[2022-12-12] MEDS: MULTIVITAMINS WITH MINERALS, THERAPEUTIC TABLET PO SCH (09:15)
[2022-12-12] MEDS: SERTRALINE HCL 100 MG TABLET PO SCH (09:16)
[2022-12-12] MEDS: OMEGA-3/DHA/EPA/FISH OIL 1,000 MG CAPSULE PO SCH ×2 (09:16→16:42)
[2022-12-12] MEDS: BusPIRone HCL 5 MG TABLET PO SCH ×3 (09:16→21:06)
[2022-12-12] MEDS: METOPROLOL TARTRATE 25 MG TABLET PO SCH ×2 (09:16→21:07)
[2022-12-12 16:00] VITALS: BP 120/69
[2022-12-12] MEDS: ALBUTEROL SULFATE HFA 90 MCG/PUFF 8 GM INHALER IH PRN (16:49)
[2022-12-12 20:51] VITALS: BP 140/87
[2022-12-12] MEDS: MEMANTINE HCL 10 MG TABLET PO SCH (21:06)
[2022-12-13] MEDS: MetFORMIN HCL 500 MG TABLET PO SCH ×2 (06:42→17:56)
[2022-12-13] MEDS: LEVOTHYROXINE SODIUM 75 MCG TABLET PO SCH (06:42)
[2022-12-13 07:04] LABS: COVID AG,FIA SOURCE NASAL SWAB
[2022-12-13] MEDS: OMEGA-3/DHA/EPA/FISH OIL 1,000 MG CAPSULE PO SCH ×2 (08:52→17:57)
[2022-12-13] MEDS: METOPROLOL TARTRATE 25 MG TABLET PO SCH ×2 (08:52→21:04)
[2022-12-13] MEDS: SERTRALINE HCL 100 MG TABLET PO SCH (08:53)
[2022-12-13] MEDS: NITROFURANTOIN MONOHYD/M-CRYST 100 MG CAPSULE [MACROBID] PO SCH ×2 (08:53→17:56)
[2022-12-13] MEDS: MULTIVITAMINS WITH MINERALS, THERAPEUTIC TABLET PO SCH (08:53)
[2022-12-13] MEDS: BusPIRone HCL 5 MG TABLET PO SCH ×3 (08:53→21:03)
[2022-12-13] MEDS: CHOLECALCIFEROL (VIT D3) 2,000 UNITS [50 MCG] TABLET PO SCH (08:53)
[2022-12-13] MEDS: ALBUTEROL SULFATE HFA 90 MCG/PUFF 8 GM INHALER IH PRN (08:55)
[2022-12-13 09:35] VITALS: BP 143/72
[2022-12-13 16:17] VITALS: BP 115/76
[2022-12-13 20:24] VITALS: BP 149/95
[2022-12-13] MEDS: MEMANTINE HCL 10 MG TABLET PO SCH (21:03)
[2022-12-14] MEDS: GuaiFENesin/D-METHORPHAN [SUGAR-FREE] 200-20MG/10 ML SYRUP UDCUP PO PRN (07:03)
[2022-12-14] MEDS: LEVOTHYROXINE SODIUM 75 MCG TABLET PO SCH (07:03)
[2022-12-14] MEDS: MetFORMIN HCL 500 MG TABLET PO SCH ×2 (07:03→16:24)
[2022-12-14 08:00] VITALS: BP 135/59
[2022-12-14] MEDS: BusPIRone HCL 5 MG TABLET PO SCH ×3 (08:20→20:56)
[2022-12-14] MEDS: OMEGA-3/DHA/EPA/FISH OIL 1,000 MG CAPSULE PO SCH ×2 (08:20→16:24)
[2022-12-14] MEDS: METOPROLOL TARTRATE 25 MG TABLET PO SCH ×2 (08:20→20:56)
[2022-12-14] MEDS: SERTRALINE HCL 100 MG TABLET PO SCH (08:20)
[2022-12-14] MEDS: MULTIVITAMINS WITH MINERALS, THERAPEUTIC TABLET PO SCH (08:20)
[2022-12-14] MEDS: CHOLECALCIFEROL (VIT D3) 2,000 UNITS [50 MCG] TABLET PO SCH (08:21)
[2022-12-14] MEDS: ALBUTEROL SULFATE HFA 90 MCG/PUFF 8 GM INHALER IH PRN ×2 (09:50→16:24)
[2022-12-14 16:05] VITALS: BP 130/65
[2022-12-14 19:25] LABS: APPEARANCE,URINE CLEAR (CLEAR); BILIRUBIN,URINE NEGATIVE (NEGATIVE); GLUCOSE, URINE (UA) NEGATIVE (NEGATIVE); KETONES,URINE NEGATIVE (NEGATIVE); LEUKOCYTE ESTERASE ,URINE MODERATE (NEGATIVE); NITRATE,URINE NEGATIVE (NEGATIVE); OCCULT BLOOD,URINE NEGATIVE (NEGATIVE); PH,URINE 6.5 (5.0-8.0); PROTEIN,URINE NEGATIVE (NEGATIVE); SPECIFIC GRAVITIY, URINE 1.007 (1.003-1.030); UROBILINOGEN,URINE <=1.0 mg/dL (<=1.0)
[2022-12-14] MEDS: MEMANTINE HCL 10 MG TABLET PO SCH (20:56)
[2022-12-14 21:20] LABS: BACTERIA,URINE None Seen /HPF (None Seen); RBC,URINE None Seen /HPF (0-2); SQUAMOUS EPITHELIAL CELL,UR Few /LPF (None Seen)
[2022-12-14 21:56] VITALS: BP 130/80
[2022-12-15] MEDS: MAG HYDROX/AL HYDROX/SIMETH ES 30 ML SUSPENSION UDCUP PO PRN (02:17)
[2022-12-15] MEDS: LEVOTHYROXINE SODIUM 75 MCG TABLET PO SCH (06:48)
[2022-12-15] MEDS: MetFORMIN HCL 500 MG TABLET PO SCH ×2 (06:48→16:27)
[2022-12-15] MEDS: MULTIVITAMINS WITH MINERALS, THERAPEUTIC TABLET PO SCH (08:29)
[2022-12-15] MEDS: OMEGA-3/DHA/EPA/FISH OIL 1,000 MG CAPSULE PO SCH ×2 (08:30→16:27)
[2022-12-15] MEDS: SERTRALINE HCL 100 MG TABLET PO SCH (08:30)
[2022-12-15] MEDS: CHOLECALCIFEROL (VIT D3) 2,000 UNITS [50 MCG] TABLET PO SCH (08:30)
[2022-12-15] MEDS: BusPIRone HCL 5 MG TABLET PO SCH ×3 (08:30→20:52)
[2022-12-15] MEDS: METOPROLOL TARTRATE 25 MG TABLET PO SCH ×2 (08:30→20:52)
[2022-12-15 08:40] VITALS: BP 147/67
[2022-12-15] MEDS: NITROFURANTOIN MACROCRYSTAL 100 MG CAPSULE PO SCH ×3 (11:22→23:40)
[2022-12-15 16:26] VITALS: BP 140/70
[2022-12-15] MEDS: MEMANTINE HCL 10 MG TABLET PO SCH (20:52)
[2022-12-15 23:05] VITALS: BP 127/6
[2022-12-16] MEDS: NITROFURANTOIN MACROCRYSTAL 100 MG CAPSULE PO SCH ×3 (06:00→17:54)
[2022-12-16] MEDS: MetFORMIN HCL 500 MG TABLET PO SCH ×2 (06:42→17:54)
[2022-12-16] MEDS: LEVOTHYROXINE SODIUM 75 MCG TABLET PO SCH (06:42)
[2022-12-16] MEDS: CHOLECALCIFEROL (VIT D3) 2,000 UNITS [50 MCG] TABLET PO SCH (08:59)
[2022-12-16] MEDS: BusPIRone HCL 5 MG TABLET PO SCH ×3 (09:03→21:17)
[2022-12-16] MEDS: METOPROLOL TARTRATE 25 MG TABLET PO SCH ×2 (09:03→21:18)
[2022-12-16] MEDS: MULTIVITAMINS WITH MINERALS, THERAPEUTIC TABLET PO SCH (09:03)
[2022-12-16] MEDS: SERTRALINE HCL 100 MG TABLET PO SCH (09:03)
[2022-12-16] MEDS: OMEGA-3/DHA/EPA/FISH OIL 1,000 MG CAPSULE PO SCH ×2 (09:03→16:29)
[2022-12-16 09:19] VITALS: BP 157/76
[2022-12-16 16:00] VITALS: BP 141/69
[2022-12-16] MEDS: ALBUTEROL SULFATE HFA 90 MCG/PUFF 8 GM INHALER IH PRN (16:28)
[2022-12-16] MEDS: MEMANTINE HCL 10 MG TABLET PO SCH (21:17)
[2022-12-17] MEDS: NITROFURANTOIN MACROCRYSTAL 100 MG CAPSULE PO SCH ×5 (06:00→23:59)
[2022-12-17] MEDS: MetFORMIN HCL 500 MG TABLET PO SCH ×2 (06:44→16:03)
[2022-12-17] MEDS: LEVOTHYROXINE SODIUM 75 MCG TABLET PO SCH (06:44)
[2022-12-17] MEDS: CHOLECALCIFEROL (VIT D3) 2,000 UNITS [50 MCG] TABLET PO SCH (08:12)
[2022-12-17] MEDS: METOPROLOL TARTRATE 25 MG TABLET PO SCH ×2 (08:13→20:53)
[2022-12-17] MEDS: MULTIVITAMINS WITH MINERALS, THERAPEUTIC TABLET PO SCH (08:13)
[2022-12-17] MEDS: SERTRALINE HCL 100 MG TABLET PO SCH (08:13)
[2022-12-17] MEDS: OMEGA-3/DHA/EPA/FISH OIL 1,000 MG CAPSULE PO SCH ×2 (08:13→16:03)
[2022-12-17] MEDS: BusPIRone HCL 5 MG TABLET PO SCH ×3 (08:14→20:54)
[2022-12-17 09:06] VITALS: BP 123/68
[2022-12-17] MEDS: MEMANTINE HCL 10 MG TABLET PO SCH (20:45)
[2022-12-18] MEDS: NITROFURANTOIN MACROCRYSTAL 100 MG CAPSULE PO SCH ×3 (06:21→17:26)
[2022-12-18] MEDS: LEVOTHYROXINE SODIUM 75 MCG TABLET PO SCH (06:21)
[2022-12-18] MEDS: MetFORMIN HCL 500 MG TABLET PO SCH ×2 (06:44→17:27)
[2022-12-18] MEDS: CHOLECALCIFEROL (VIT D3) 2,000 UNITS [50 MCG] TABLET PO SCH (09:21)
[2022-12-18] MEDS: MULTIVITAMINS WITH MINERALS, THERAPEUTIC TABLET PO SCH (09:23)
[2022-12-18] MEDS: SERTRALINE HCL 100 MG TABLET PO SCH (09:23)
[2022-12-18] MEDS: OMEGA-3/DHA/EPA/FISH OIL 1,000 MG CAPSULE PO SCH ×2 (09:23→17:27)
[2022-12-18] MEDS: METOPROLOL TARTRATE 25 MG TABLET PO SCH ×2 (09:23→21:10)
[2022-12-18 09:24] VITALS: BP 127/78
[2022-12-18] MEDS: BusPIRone HCL 5 MG TABLET PO SCH ×3 (09:24→21:09)
[2022-12-18 16:00] VITALS: BP 145/62
[2022-12-18] MEDS: MEMANTINE HCL 10 MG TABLET PO SCH (21:10)
[2022-12-18 22:40] VITALS: BP 137/79
[2022-12-19] MEDS: NITROFURANTOIN MACROCRYSTAL 100 MG CAPSULE PO SCH ×4 (00:29→18:13)
[2022-12-19] MEDS: LEVOTHYROXINE SODIUM 75 MCG TABLET PO SCH (06:42)
[2022-12-19] MEDS: MetFORMIN HCL 500 MG TABLET PO SCH ×2 (06:42→16:57)
[2022-12-19 08:00] VITALS: BP 140/54
[2022-12-19] MEDS: MULTIVITAMINS WITH MINERALS, THERAPEUTIC TABLET PO SCH (09:53)
[2022-12-19] MEDS: OMEGA-3/DHA/EPA/FISH OIL 1,000 MG CAPSULE PO SCH ×2 (09:53→16:55)
[2022-12-19] MEDS: BusPIRone HCL 5 MG TABLET PO SCH ×3 (09:53→20:10)
[2022-12-19] MEDS: METOPROLOL TARTRATE 25 MG TABLET PO SCH ×2 (09:54→20:10)
[2022-12-19] MEDS: SERTRALINE HCL 100 MG TABLET PO SCH (09:54)
[2022-12-19] MEDS: CHOLECALCIFEROL (VIT D3) 2,000 UNITS [50 MCG] TABLET PO SCH (09:55)
[2022-12-19 16:00] VITALS: BP 149/82
[2022-12-19 17:07] VITALS: BP 149/82
[2022-12-19] MEDS: MEMANTINE HCL 10 MG TABLET PO SCH (20:10)
[2022-12-19 22:14] VITALS: BP 128/68
[2022-12-20] MEDS: NITROFURANTOIN MACROCRYSTAL 100 MG CAPSULE PO SCH ×4 (00:04→17:41)
[2022-12-20] MEDS: LEVOTHYROXINE SODIUM 75 MCG TABLET PO SCH (06:06)
[2022-12-20] MEDS: MetFORMIN HCL 500 MG TABLET PO SCH ×2 (06:42→17:40)
[2022-12-20 07:34] LABS: COVID AG,FIA SOURCE NASAL SWAB
[2022-12-20] MEDS: SERTRALINE HCL 100 MG TABLET PO SCH (08:33)
[2022-12-20] MEDS: BusPIRone HCL 5 MG TABLET PO SCH ×3 (08:33→20:22)
[2022-12-20] MEDS: OMEGA-3/DHA/EPA/FISH OIL 1,000 MG CAPSULE PO SCH ×2 (08:34→17:40)
[2022-12-20] MEDS: MULTIVITAMINS WITH MINERALS, THERAPEUTIC TABLET PO SCH (08:34)
[2022-12-20] MEDS: METOPROLOL TARTRATE 25 MG TABLET PO SCH ×2 (08:34→20:22)
[2022-12-20] MEDS: CHOLECALCIFEROL (VIT D3) 2,000 UNITS [50 MCG] TABLET PO SCH (08:37)
[2022-12-20 08:58] VITALS: BP 130/51
[2022-12-20] MEDS: ALBUTEROL SULFATE HFA 90 MCG/PUFF 8 GM INHALER IH PRN (11:08)
[2022-12-20] MEDS: MEMANTINE HCL 10 MG TABLET PO SCH (20:22)
[2022-12-20 20:47] VITALS: BP 149/76
[2022-12-21] MEDS: NITROFURANTOIN MACROCRYSTAL 100 MG CAPSULE PO SCH ×4 (00:42→18:53)
[2022-12-21] MEDS: LEVOTHYROXINE SODIUM 75 MCG TABLET PO SCH (06:06)
[2022-12-21] MEDS: MetFORMIN HCL 500 MG TABLET PO SCH ×2 (06:34→17:25)
[2022-12-21 09:05] VITALS: BP 154/77
[2022-12-21] MEDS: MULTIVITAMINS WITH MINERALS, THERAPEUTIC TABLET PO SCH (09:49)
[2022-12-21] MEDS: CHOLECALCIFEROL (VIT D3) 2,000 UNITS [50 MCG] TABLET PO SCH (09:49)
[2022-12-21] MEDS: METOPROLOL TARTRATE 25 MG TABLET PO SCH ×2 (09:49→21:36)
[2022-12-21] MEDS: OMEGA-3/DHA/EPA/FISH OIL 1,000 MG CAPSULE PO SCH ×2 (09:50→16:34)
[2022-12-21] MEDS: SERTRALINE HCL 100 MG TABLET PO SCH (09:50)
[2022-12-21] MEDS: BusPIRone HCL 5 MG TABLET PO SCH ×3 (09:51→21:36)
[2022-12-21 16:45] VITALS: BP 157/66
[2022-12-21 20:44] VITALS: BP 140/73
[2022-12-21] MEDS: MEMANTINE HCL 10 MG TABLET PO SCH (21:36)
[2022-12-22] MEDS: MetFORMIN HCL 500 MG TABLET PO SCH ×2 (06:54→16:42)
[2022-12-22] MEDS: LEVOTHYROXINE SODIUM 75 MCG TABLET PO SCH (06:54)
[2022-12-22] MEDS: METOPROLOL TARTRATE 25 MG TABLET PO SCH ×2 (08:21→21:34)
[2022-12-22] MEDS: BusPIRone HCL 5 MG TABLET PO SCH ×3 (08:21→21:34)
[2022-12-22] MEDS: OMEGA-3/DHA/EPA/FISH OIL 1,000 MG CAPSULE PO SCH ×2 (08:21→16:41)
[2022-12-22] MEDS: MULTIVITAMINS WITH MINERALS, THERAPEUTIC TABLET PO SCH (08:21)
[2022-12-22] MEDS: SERTRALINE HCL 100 MG TABLET PO SCH (08:22)
[2022-12-22] MEDS: CHOLECALCIFEROL (VIT D3) 2,000 UNITS [50 MCG] TABLET PO SCH (08:22)
[2022-12-22 10:04] VITALS: BP 143/78
[2022-12-22 16:29] VITALS: BP 125/60
[2022-12-22] MEDS: MEMANTINE HCL 10 MG TABLET PO SCH (21:33)
[2022-12-22] MEDS: ZOLPIDEM TARTRATE 10 MG TABLET PO PRN (21:34)
[2022-12-22 21:48] VITALS: BP 137/64
[2022-12-23] MEDS: MetFORMIN HCL 500 MG TABLET PO SCH ×2 (06:41→17:51)
[2022-12-23] MEDS: LEVOTHYROXINE SODIUM 75 MCG TABLET PO SCH (06:41)
[2022-12-23 09:29] VITALS: BP 126/60
[2022-12-23] MEDS: MULTIVITAMINS WITH MINERALS, THERAPEUTIC TABLET PO SCH (10:01)
[2022-12-23] MEDS: OMEGA-3/DHA/EPA/FISH OIL 1,000 MG CAPSULE PO SCH ×2 (10:02→17:51)
[2022-12-23] MEDS: BusPIRone HCL 5 MG TABLET PO SCH ×3 (10:02→21:30)
[2022-12-23] MEDS: METOPROLOL TARTRATE 25 MG TABLET PO SCH ×2 (10:02→21:31)
[2022-12-23] MEDS: CHOLECALCIFEROL (VIT D3) 2,000 UNITS [50 MCG] TABLET PO SCH (10:04)
[2022-12-23] MEDS: SERTRALINE HCL 100 MG TABLET PO SCH (10:05)
[2022-12-23] MEDS: ALBUTEROL SULFATE HFA 90 MCG/PUFF 8 GM INHALER IH PRN (10:15)
[2022-12-23 16:53] VITALS: BP 149/54
[2022-12-23] MEDS: MEMANTINE HCL 10 MG TABLET PO SCH (21:31)
[2022-12-24] MEDS ORDERED: SERT-440 PO (00:27)
[2022-12-24] MEDS ORDERED: LEVO75 PO (00:27)
[2022-12-24] MEDS ORDERED: METF-1211 PO (00:27)
[2022-12-24] MEDS ORDERED: OMEG-135 PO (00:27)
[2022-12-24] MEDS ORDERED: BUSP5TAB20 PO (00:27)
[2022-12-24] MEDS ORDERED: MEMA10TA11 PO (00:27)
[2022-12-24] MEDS: LEVOTHYROXINE SODIUM 75 MCG TABLET PO SCH (06:41)
[2022-12-24] MEDS: MetFORMIN HCL 500 MG TABLET PO SCH ×2 (06:42→17:26)
[2022-12-24 09:40] VITALS: BP 154/75
[2022-12-24] MEDS: BusPIRone HCL 5 MG TABLET PO SCH ×2 (10:03→17:25)
[2022-12-24] MEDS: OMEGA-3/DHA/EPA/FISH OIL 1,000 MG CAPSULE PO SCH ×2 (10:03→17:25)
[2022-12-24] MEDS: METOPROLOL TARTRATE 25 MG TABLET PO SCH (10:03)
[2022-12-24] MEDS: SERTRALINE HCL 100 MG TABLET PO SCH (10:03)
[2022-12-24] MEDS: MULTIVITAMINS WITH MINERALS, THERAPEUTIC TABLET PO SCH (10:03)
[2022-12-24] MEDS: CHOLECALCIFEROL (VIT D3) 2,000 UNITS [50 MCG] TABLET PO SCH (10:05)
[2022-12-24] MEDS ORDERED: MULT-1239 PO (14:06)
[2022-12-24 16:33] VITALS: BP 126/63
== END 2022-12-24 17:50 | disposition home or self-care (01) | DRG 885 ==
LOC: EMS 05:50 → 3EI 10:26
PROVIDERS: ADMIT Psychiatry & Neurology Psychiatry; ATTEND Psychiatry & Neurology Psychiatry
DX: F33.2 Major depressive disorder, recurrent severe without psychotic features (principal); E11.65 Type 2 diabetes mellitus with hyperglycemia; F13.20 Sedative, hypnotic or anxiolytic dependence, uncomplicated; F03.93 Unspecified dementia, unspecified severity, with mood disturbance; F03.94 Unspecified dementia, unspecified severity, with anxiety; R45.851 Suicidal ideations; I10 Essential (primary) hypertension; Z79.899 Other long term (current) drug therapy; E78.5 Hyperlipidemia, unspecified; Z88.0 Allergy status to penicillin
CPT/HCPCS: 80053; 80307; 81001; 83036; 84484; 85025; 87081; 87086; 87186; 92526; 92610; 93005; 99285; G0480; J2060; J2405; J3535; J7030